=== PATIENT | male | born 1985 | race Caucasian/White ===

== ENCOUNTER 2018-03-18 16:22 | Emergency (ER) | payer SELFPAY ==
[~2018-03-18] VITALS: Ht 167.6 cm; Wt 74.8 kg
[2018-03-18 16:22] VITALS: BP_SYST 119
[2018-03-18 17:12] VITALS: BP_SYST 117
== END 2018-03-18 17:10 ==
LOC: SED 16:22
DX: R07.89 Other chest pain (principal); R06.02 Shortness of breath
CPT/HCPCS: 93005; 99283